=== PATIENT | male | born 1965 | race African-American/Black ===

== ENCOUNTER 2023-01-06 10:10 | Emergency (ER) | payer OTHER ==
[2023-01-06 10:24] VITALS: BP 161/79; PULSE 55; RESP 18; TEMP 97.4; BMI 31.2
[2023-01-06 11:45] LABS: BASO % 0.6 % (0-2.0); EOS % 1.3 % (0-4.5); HEMATOCRIT 40.5 % (35.4-49); HEMOGLOBIN 14.3 GM/dL (11.7-16.9); LYMPH % 21.2 % (8-40); MCH 33.3 pg (25.7-33.7); MCHC 35.2 g/dl (32.0-35.9); MEAN CELL VOLUME 94.5 fl (80-96); MEAN PLT VOLUME 8.2 fl (7.5-11.1); NEUT % 69.9 % (42.8-82.8); PLATELET COUNT 214 10^3/uL (134-434); RBC 4.28 M/mm3 (4.00-5.60); RDW 12.7 % (11.9-15.9); WHITE BLOOD COUNT 10.8 K/mm3 (4.0-10.0)
[2023-01-06 12:08] LABS: POTASSIUM 3.8 mmol/L (3.5-5.1)
[2023-01-06 12:11] LABS: BLOOD UREA NITROGEN 10.9 mg/dL (7-18); CALCIUM 8.8 mg/dL (8.5-10.1)
[2023-01-06 12:12] LABS: CREATININE 1.1 mg/dL (0.55-1.3)
[2023-01-06] MEDS ORDERED: LIDOCAINE 5% TOPICAL PATCH TP ONE (13:09)
[2023-01-06] MEDS ORDERED: ACETAMINOPHEN 500 MG TABLET (FP) PO ONE (13:09)
[2023-01-06] MEDS ORDERED: IBUPROFEN 600 MG TABLET (FP) PO ONE ×2 (13:09→13:21)
[2023-01-06] MEDS ORDERED: ACETAMINOPHEN 325 MG TABLET (FP) ONE (13:21)
[2023-01-06] MEDS ORDERED: LIDOCAINE 5% TOPICAL PATCH ONE (13:22)
[2023-01-06] MEDS ORDERED: LIDOCAINE PATCH REMOVAL MC ONE (22:00)
== END 2023-01-06 13:50 | disposition home or self-care (01) ==
LOC: JER 10:10
DX: R07.81 Pleurodynia (principal); R10.9 Unspecified abdominal pain; R11.2 Nausea with vomiting, unspecified; R42 Dizziness and giddiness; R06.02 Shortness of breath
CPT/HCPCS: 36415; 71046-TC-FY; 71275-TC; 80048; 85025; 85379; 99285-25; Q9967